=== PATIENT | female | born 1990 | race American Indian/Alaskan Native ===

== ENCOUNTER 2021-07-11 19:34 | Emergency (ER) | payer OTHER ==
[2021-07-11] MEDS ORDERED: IBUPROFEN 800 MG TAB PO ONE (19:56)
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
[2021-07-11 21:44] VITALS: BP 98/67
== END 2021-07-11 21:48 | disposition home or self-care (01) ==
LOC: ED 19:34
DX: S13.4XXA Sprain of ligaments of cervical spine, initial encounter (principal); S39.012A Strain of muscle, fascia and tendon of lower back, initial encounter; M54.6 Pain in thoracic spine; Z98.890 Other specified postprocedural states; Z79.899 Other long term (current) drug therapy; V89.2XXA Person injured in unspecified motor-vehicle accident, traffic, initial encounter; Y93.89 Activity, other specified; Y92.488 Other paved roadways as the place of occurrence of the external cause; Y99.8 Other external cause status
CPT/HCPCS: 72040; 72070; 72100; 99283

== ENCOUNTER 2021-07-12 20:45 | Emergency (ER) | payer OTHER ==
[2021-07-12 21:20] VITALS: BP 118/81
--- NOTE | 2021-07-12 22:51 | Emergency Department Report ---
ED Female HPI - General Chief complaint: Abdominal Pain Stated complaint: POSS UTI STOMACH/LOWER ABD PAIN FREQUENT URINATION Time Seen by Provider: 07/12/21 22:06 Source: patient Mode of arrival: Ambulatory Limitations: No Limitations - History of Present Illness Initial comments: 31-year-old male female [facility] emerge department complaining strong sense of urinary tract infection that was similar to her symptoms 6 months ago reporting increased urinary urgency decreased urinary production with some burning on urination. Stating that time she also has a bacterial vaginosis presents emerge department seeking treatment for the above. She reports no hemoptysis, hematemesis, hematochezia, no fever, chills, sweats, chest pain, palpitations, diarrhea. MD Complaint: dysuria -: Gradual Location: suprapubic Radiation: non-radiating Severity: mild Quality: burning Consistency: constant Improves with: none Worsens with: none, urination Are you Now?: No Associated Symptoms: dysuria. denies: vaginal bleeding, nausea/vomiting, syncope, weakness - Related Data Sexually active: Yes Previous Rx's Medication Instructions Recorded Last Taken Type Cyclobenzaprine [Flexeril] 10 mg PO QHS PRN #10 tablet 07/11/21 Unknown Rx Naproxen 500 mg PO Q12H PRN #12 tablet 07/11/21 Unknown Rx Nitrofurantoin Pratt/M-Cryst 100 mg PO Q12HR #20 capsule 07/12/21 Unknown Rx [Macrobid CAP] Phenazopyridine [Pyridium] 200 mg PO BID PRN #10 tab 07/12/21 Unknown Rx metroNIDAZOLE [Flagyl] 2,000 mg PO ONCE #4 tablet 07/12/21 Unknown Rx Allergies Allergy/AdvReac Type Severity Reaction Status Date / Time No Known Allergies Allergy Unverified 07/11/21 19:49 ED Review of Systems ROS: Stated complaint: POSS UTI STOMACH/LOWER ABD PAIN FREQUENT URINATION Other details as noted in HPI Comment: All other systems reviewed and negative ED Past Medical Hx - Past Medical History Previous Medical History?: No - Surgical History Past Surgical History?: No Additional Surgical History: csection - Medications Home Medications: Home Medications Medication Instructions Recorded Confirmed Last Taken Type Cyclobenzaprine [Flexeril] 10 mg PO QHS PRN #10 tablet 07/11/21 Unknown Rx Naproxen 500 mg PO Q12H PRN #12 tablet 07/11/21 Unknown Rx Nitrofurantoin Pratt/M-Cryst 100 mg PO Q12HR #20 capsule 07/12/21 Unknown Rx [Macrobid CAP] Phenazopyridine [Pyridium] 200 mg PO BID PRN #10 tab 07/12/21 Unknown Rx metroNIDAZOLE [Flagyl] 2,000 mg PO ONCE #4 tablet 07/12/21 Unknown Rx ED Physical Exam - General Limitations: No Limitations General appearance: alert, in no apparent distress - Head Head exam: Present: atraumatic, normocephalic - Eye Eye exam: Present: normal appearance - ENT ENT exam: Present: mucous membranes moist - Neck Neck exam: Present: normal inspection, tenderness, full ROM - Respiratory Respiratory exam: Present: normal lung sounds bilaterally. Absent: respiratory distress, wheezes, rales, rhonchi - Cardiovascular Cardiovascular Exam: Present: regular rate, normal rhythm. Absent: systolic murmur, diastolic murmur, rubs, gallop - GI/Abdominal GI/Abdominal exam: Present: soft, tenderness, normal bowel sounds. Absent: organomegaly, mass - Extremities Exam Extremities exam: Present: normal inspection, normal capillary refill - Back Exam Back exam: Present: normal inspection. Absent: CVA tenderness (R), CVA tenderness (L) - Neurological Exam Neurological exam: Present: alert, oriented X3, CN II-XII intact, normal gait - Psychiatric Psychiatric exam: Present: normal affect, normal mood. Absent: anxious, flat affect - Skin Skin exam: Present: warm, dry, intact, normal color. Absent: rash ED Course Vital Signs 07/12/21 21:19 Pulse Rate 83 Respiratory 14 Rate Blood Pressure 118/81 O2 Sat by Pulse 100 Oximetry ED Medical Decision Making - Medical Decision Making This patient presents to the emergency department with symptoms consistent with acute uncomplicated cystitis. No systemic symptoms. Not septic. She is well- appearing. Low suspicion for acute pyelonephritis given the lack of fever, CVA tenderness, or systemic features. Low suspicion for for kidney stone or infected stone. Not in age range for and her history and and presentation are complicated. No no indications for labs or imaging at this time. Critical care attestation.: If time is entered above; I have spent that time in minutes in the direct care of this critically ill patient, excluding procedure time. ED Disposition Clinical Impression: UTI (urinary tract infection) Disposition: HOME / SELF CARE / HOMELESS Is pt being admited?: No Does the pt Need Aspirin: No Condition: Stable Instructions: Abdominal Pain (ED), Urinary Tract Infection, Adult, Urodynamic Testing, Urinalysis Test Referrals: [facility] [Provider Group] - 3-5 Days
[2021-07-12 23:46] LABS: Bacteria,Urine 4+ /HPF (Negative); Bilirubin,Urine NEG (Negative); Blood,Urine MOD (Negative); Color,Urine Yellow (Yellow); Mucus,Urine FEW /HPF
[2021-07-12 23:49] LABS: RBC,Urine > 182.0 /HPF (0.0-6.0); WBC,Urine > 182.0 /HPF (0.0-6.0)
[2021-07-12 23:51] LABS: HCG Qualitative,Urine Negative (Negative)
== END 2021-07-13 00:37 | disposition home or self-care (01) ==
LOC: ED 20:45
DX: N39.0 Urinary tract infection, site not specified (principal); N76.0 Acute vaginitis; Z98.890 Other specified postprocedural states
CPT/HCPCS: 81001; 81025; 99283

== ENCOUNTER 2021-10-18 16:11 | Emergency (ER) | payer OTHER ==
[2021-10-18] MEDS ORDERED: ACETAMINOPHEN 325 MG TAB PO ONE (17:41)
[2021-10-18] MEDS ORDERED: IBUPROFEN 400 MG TAB PO ONE (17:41)
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
[2021-10-18 18:46] VITALS: BP 110/64
== END 2021-10-18 18:15 | disposition home or self-care (01) ==
LOC: ED 16:11
DX: M79.605 Pain in left leg (principal); M54.50 Low back pain, unspecified; V89.2XXA Person injured in unspecified motor-vehicle accident, traffic, initial encounter; Y93.89 Activity, other specified; Y92.89 Other specified places as the place of occurrence of the external cause; Y99.8 Other external cause status
CPT/HCPCS: 99282